=== PATIENT | male | born 1980 | race Caucasian/White ===

== ENCOUNTER 2020-10-23 21:45 | Observation (INO) | payer OTHER ==
[2020-10-23] MEDS ORDERED: SODIUM CHLORIDE 0.9% 1,000 ML IV STA (21:54)
[2020-10-23 22:01] LABS: Glucose,Whole Blood 104 mg/dL (75-99)
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
[2020-10-23 22:16] LABS: Basophils # (A) 0.1 k/uL (0-0.2); Basophils % (A) 1 %; Eosinophils # (A) 0.2 k/uL (0-0.7); Eosinophils % (A) 2 %; HCT 40.4 % (39.0-53.0); HGB 14.1 gm/dL (13.0-17.5); Lymphocytes # (A) 2.8 k/uL (1.0-4.8); Lymphocytes % (A) 24 %; MCH 32.1 pg (25.0-35.0); MCHC 34.9 g/dL (31.0-37.0); MCV 91.9 fL (80.0-100.0); Mean Platelet Volume 8.4; Monocytes # (A) 0.6 k/uL (0-1.0); Monocytes % (A) 5 %; Neutrophils # (A) 7.4 k/uL (1.3-7.7); Neutrophils % (A) 65 %; Platelet Count 206 k/uL (150-450); RBC 4.39 m/uL (4.30-5.90); RDW 12.9 % (11.5-15.5); WBC 11.4 k/uL (3.8-10.6)
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
[2020-10-23 22:27] LABS: ALT 24 U/L (4-49); AST 39 U/L (17-59); African American GFR (CKD) >90 (>60 ml/min/1.73 sqM); Albumin 4.3 g/dL (3.5-5.0); Alkaline Phosphatase 51 U/L (38-126); Anion Gap 8 mmol/L; Blood Urea Nitrogen 11 mg/dL (9-20); Calcium 8.6 mg/dL (8.4-10.2); Carbon Dioxide 24 mmol/L (22-30); Chloride 103 mmol/L (98-107); Creatine Kinase 419 U/L (55-170); Glucose 92 mg/dL (74-99); Non-African American GFR(CKD) >90 (>60 ml/min/1.73 sqM); Potassium 3.6 mmol/L (3.5-5.1); Sodium 135 mmol/L (137-145); Total Bilirubin 0.2 mg/dL (0.2-1.3); Total Protein 6.7 g/dL (6.3-8.2)
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
[2020-10-23 22:35] LABS: Alcohol 122 mg/dL
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
[2020-10-23 22:41] LABS: Prothrombin Time 10.3 sec (9.0-12.0)
[2020-10-23] MEDS ORDERED: ONDANSETRON 4 MG/2 ML VIAL IVP PRN (23:24)
[2020-10-23] MEDS ORDERED: HYDROmorphone 1 MG/ML 1 ML SYRINGE IVP PRN (23:24)
[2020-10-23] MEDS ORDERED: NALOXONE 0.4 MG/ML 1 ML VIAL IV PRN (23:24)
[2020-10-23] MEDS ORDERED: MORPHINE SULFATE 4 MG/ML SYRINGE IV PRN (23:24)
[2020-10-23 23:58] LABS: Appearance,Urine Clear (Clear); Bilirubin,Urine Negative (Negative); Blood,Urine Small (Negative); Color,Urine Colorless; Glucose,Urine (UA) Negative (Negative); Ketones,Urine Negative (Negative); Leukocyte Esterase,Urine Negative (Negative); Nitrite,Urine Negative (Negative); Protein,Urine Trace (Negative); RBC,Urine 4 /hpf (0-5); Specific Gravity,Urine 1.024 (1.001-1.035); Urobilinogen,Urine <2.0 mg/dL (<2.0); WBC,Urine 1 /hpf (0-5)
[2020-10-24 00:22] LABS: Amphetamine Screen,Urine Not Detected (NotDetected); Barbiturate Screen,Urine Not Detected (NotDetected); Benzodiazepines Screen,Urine Not Detected (NotDetected); Cocaine Screen,Urine Not Detected (NotDetected); Methadone Screen, Urine Not Detected (NotDetected); Opiate Screen,Urine Detected (NotDetected); Oxycodone Screen, Urine Not Detected (NotDetected); Phencyclidine Screen,Urine Not Detected (NotDetected); Tricyclic Antidepressant,Urine Not Detected (NotDetected); Urn Cannabinoid Scrn Detected (NotDetected)
[2020-10-24 04:29] LABS: Glucose,Whole Blood 127 mg/dL (75-99)
[2020-10-24] MEDS ORDERED: diphenhydrAMINE 50 MG/ML 1 ML VIAL IVP PRN (04:50)
[2020-10-24 07:16] LABS: Basophils # (A) 0.1 k/uL (0-0.2); Basophils % (A) 1 %; Eosinophils % (A) 0 %; HCT 40.8 % (39.0-53.0); HGB 14.1 gm/dL (13.0-17.5); Lymphocytes # (A) 1.1 k/uL (1.0-4.8); Lymphocytes % (A) 9 %; MCH 31.5 pg (25.0-35.0); MCHC 34.5 g/dL (31.0-37.0); MCV 91.2 fL (80.0-100.0); Mean Platelet Volume 8.3; Monocytes # (A) 0.8 k/uL (0-1.0); Monocytes % (A) 6 %; Neutrophils # (A) 9.6 k/uL (1.3-7.7); Neutrophils % (A) 82 %; Platelet Count 195 k/uL (150-450); RBC 4.47 m/uL (4.30-5.90); RDW 12.8 % (11.5-15.5); WBC 11.7 k/uL (3.8-10.6)
[2020-10-24 07:39] LABS: ALT 29 U/L (4-49); AST 62 U/L (17-59); African American GFR (CKD) >90 (>60 ml/min/1.73 sqM); Albumin 4.1 g/dL (3.5-5.0); Alkaline Phosphatase 54 U/L (38-126); Anion Gap 9 mmol/L; Blood Urea Nitrogen 12 mg/dL (9-20); Calcium 8.8 mg/dL (8.4-10.2); Carbon Dioxide 22 mmol/L (22-30); Chloride 104 mmol/L (98-107); Glucose 115 mg/dL (74-99); Magnesium 1.6 mg/dL (1.6-2.3); Non-African American GFR(CKD) >90 (>60 ml/min/1.73 sqM); Phosphorus 3.5 mg/dL (2.5-4.5); Potassium 4.4 mmol/L (3.5-5.1); Sodium 135 mmol/L (137-145); Total Bilirubin 0.6 mg/dL (0.2-1.3); Total Protein 6.5 g/dL (6.3-8.2)
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
[2020-10-24] MEDS ORDERED: traMADol 50 MG TAB PO PRN (10:29)
[2020-10-24] MEDS ORDERED: ACETAMINOPHEN TAB 325 MG TAB PO PRN (10:38)
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
[2020-10-24] MEDS: HEPARIN SODIUM,PORCINE/PF 5,000 UNIT/0.5 ML SYRINGE SQ SCH ×3 (10:55→23:27)
[2020-10-24] MEDS: IBUPROFEN 600 MG TAB PO PRN ×2 (13:54→21:41)
[2020-10-24] MEDS: FAMOTIDINE 20 MG/2 ML VIAL IV SCH ×2 (13:54→21:42)
[2020-10-24 15:41] VITALS: RESP 16
[2020-10-25] MEDS: IBUPROFEN 600 MG TAB PO PRN ×2 (05:32→11:08)
[2020-10-25 08:11] VITALS: BP 118/75; PULSE 68; TEMP 98
[2020-10-25] MEDS: HEPARIN SODIUM,PORCINE/PF 5,000 UNIT/0.5 ML SYRINGE SQ SCH (08:18)
[2020-10-25] MEDS: FAMOTIDINE 20 MG/2 ML VIAL IV SCH (08:20)
--- NOTE | 2020-10-25 09:57 | P.PN ---
Subjective Progress Note Date: 10/25/20 Principal diagnosis: Pelvic fracture Patient says his pain is improved. He is only doing Motrin for pain at this point because of the side effects he gets with the narcotic medications. He has not been evaluated by physical therapy and does not have a walker yet. He is tolerating his diet. Objective - Vital Signs Vital signs: Vital Signs Temp 98 F 10/25/20 08:00 Pulse 68 10/25/20 08:20 Resp 16 10/25/20 08:20 BP 118/75 10/25/20 08:00 Pulse Ox 99 10/25/20 08:00 Intake & Output 10/24/20 10/25/20 10/25/20 18:59 06:59 18:59 Intake Total 1200 Output Total 500 300 Balance 700 -300 Intake: Oral 1200 Output: Urine 500 300 Other: # Voids 3 1 - Exam Abdomen: Soft, nondistended, mild tenderness bilateral hip regions, ecchymosis right flank slightly larger - Labs CBC & Chem 7: 10/24/20 06:53 10/24/20 06:53 Assessment and Plan (1) Closed fracture of left iliac crest Narrative/Plan: Patient overall improving. Once physical therapy instruct patient on use of walker and if he is able to utilize that would consider discharge later today. Current Visit: Yes Status: Acute Code(s): S32.302A - UNSP FRACTURE OF LEFT ILIUM, INIT ENCNTR FOR CLOSED FRACTURE SNOMED Code(s): 192665305
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
== END 2020-10-25 13:25 | disposition home or self-care (01) ==
LOC: EC 21:45 → INTOOBSV 23:24 → 4SSUR 23:24 → UNDODISIN 10-25 13:25
PROVIDERS: ADMIT Surgery; ATTEND Surgery
DX: S32.302A Unspecified fracture of left ilium, initial encounter for closed fracture (principal); S30.0XXA Contusion of lower back and pelvis, initial encounter; S30.1XXA Contusion of abdominal wall, initial encounter; R41.82 Altered mental status, unspecified; F10.10 Alcohol abuse, uncomplicated; Y90.6 Blood alcohol level of 120-199 mg/100 ml; Z20.822 Contact with and (suspected) exposure to COVID-19; V86.55XA Driver of 3- or 4- wheeled all-terrain vehicle (ATV) injured in nontraffic accident, initial encounter; Z88.5 Allergy status to narcotic agent; Z98.890 Other specified postprocedural states
CPT/HCPCS: 96376; 96372 ×2; 96375; 96361; 96374; 99285; 36415; 93005; 97162; 86900; 86901; 80053 ×2; 82550; 83735; 84100; 84484; 85025 ×2; 85610; 85730; 86850; 81001; 80306; 87635; 72170; 71045; 72125; 70450; 71260; 74177; G0378 ×3; G0480; J1200; J2405; J1170; Q9967; J1644 ×2; 80320; 96360